=== PATIENT | female | born 1995 | race American Indian/Alaskan Native ===

== ENCOUNTER 2017-07-20 16:05 | Emergency (ER) | payer SELFPAY | END 2017-07-20 16:22 | disposition left against medical advice (07) | LOC: ED 16:05 | DX: Z04.1 Encounter for examination and observation following transport accident (principal); Z91.02 Food additives allergy status; V89.2XXA Person injured in unspecified motor-vehicle accident, traffic, initial encounter; Y93.89 Activity, other specified; Y99.9 Unspecified external cause status; Y92.89 Other specified places as the place of occurrence of the external cause; Z53.21 Procedure and treatment not carried out due to patient leaving prior to being seen by health care provider ==